=== PATIENT | male | born 1975 | race Caucasian/White ===

== ENCOUNTER → 2024-02-16 | Outpatient (CLI) | payer BC | END | disposition home or self-care (01) | LOC: RAH 10:33 | PROVIDERS: ATTEND Internal Medicine | DX: K44.9 Diaphragmatic hernia without obstruction or gangrene (principal); R10.12 Left upper quadrant pain | CPT/HCPCS: 74240 ==

== ENCOUNTER → 2024-09-01 | Outpatient (CLI) | payer BC | END | disposition home or self-care (01) | LOC: RAH 12:50 | PROVIDERS: ATTEND Family Medicine | DX: S46.312A Strain of muscle, fascia and tendon of triceps, left arm, initial encounter (principal); M79.89 Other specified soft tissue disorders; X58.XXXA Exposure to other specified factors, initial encounter; Y93.89 Activity, other specified; Y92.89 Other specified places as the place of occurrence of the external cause; Y99.8 Other external cause status | CPT/HCPCS: 73218 ==

== ENCOUNTER 2025-11-10 11:01 | Observation (INO) | payer BC ==
[~2025-11-10] VITALS: Ht 185.4 cm; Wt 110.9 kg
[2025-11-10] VITALS (15 sets, daily range): BP systolic 122–150; BP diastolic 71–101; PULSE 50–101; RESP 13–23; TEMP 97.6–98.2; O2SAT 97
--- NOTE | 2025-11-10 11:18 | ERN ---
ED Note History of Present Illness Stated Complaint: FOREIGN OBJECT IN THROAT Chief Complaint: Other Problems Time Seen by MD: 11:04 Time Seen by Midlevel: 11:10 Dictation: 50-YEAR-OLD MALE WITH A HISTORY OF HYPERTENSION COMING IN FROM [facility] FOR COMPLAINTS OF HAVING A PIECE OF CHICKEN STUCK IN HIS ESOPHAGUS. PATIENT STATES YESTERDAY HE WAS EATING CHICKEN AFTER HE ATE HE FELT SOMETHING STUCK IN HIS ESOPHAGUS. TODAY HE WENT TO WENT TO [facility] AND WAS SENT HERE TO EXPEDITE EGD. IN HIS AWAKE ALERT AND ORIENTED, SPEAKING FULL SENTENCES, NO DROOLING, NO SHORTNESS A BREATH, NO TACHYPNEA, SPO2 NORMAL LIMITS. Allergies: Coded Allergies: No Known Drug Allergies (Unverified Allergy, Unknown, 11/10/25) Past Medical History Past Medical History: Asthma, Hypertension Additional Past Medical Hx: GLAUCOMA Surgical History: None Review of System Dictation CONSTITUTIONAL: NEGATIVE FOR FEVER,CHILLS, AND WEIGHT LOSS EYES: NEGATIVE FOR INJURY, PAIN,REDNESS, AND DISCHARGE ENT: PATIENT STATES HE FEELS FOREIGN BODY IN HIS ESOPHAGUS CARDIOVASCULAR: NEGATIVE FOR CHEST PAIN, PALPITATIONS, AND EDEMA RESPIRATORY: NEGATIVE FOR SHORTNESS OF BREATH, COUGH, AND WHEEZING, ABDOMEN/GI: NEGATIVE FOR ABDOMINAL PAIN, NAUSEA, VOMITING, DIARRHEA, AND CONSTIPATION BACK: NEGATIVE FOR INJURY AND PAIN : NEGATIVE FOR INJURY, BLEEDING AND DISCHARGE MS/EXTREMITY: NEGATIVE FOR INJURY AND DEFORMITY SKIN: NEGATIVE FOR RASH, AND DISCOLORATION NEURO: NEGATIVE FOR HEADACHE, WEAKNESS, NUMBNESS, TINGLING, AND SEIZURE PSYCH: NEGATIVE FOR SUICIDE IDEATION, HOMICIDAL IDEATION, AND HALLUCINATIONS Review of Systems: was completed Initial Vital Sign VS Vital Signs Date Time Temp Pulse Resp B/P (MAP) Pulse Ox O2 Delivery O2 Flow Rate FiO2 11/10/25 11:03 97.9 60 16 162/90 99 Room Air 11/10/25 11:16 0 21 Physical Exam Dictation GENERAL: AWAKE, ALERT, NAD HEAD/FACE: NORMOCEPHALIC, ATRAUMATIC EYES: PERRL, EOMI, VISION AT BASELINE ENT: ORAL CAVITY CLEAR, TMS CLEAR, NO SIGNS OF INFECTION NECK: TRACHEA MIDLINE, SUPPLE, NO NUCHAL RIGIDITY CARDIOVASCULAR: RRR, NORMAL S1/S2, NO MRGS, NO JVD RESPIRATORY: CTAB, NO RESPIRATORY DISTRESS, NO RALES OR WHEEZES ABDOMEN: SOFT, NON-TENDER, NON-DISTENDED, NORMAL BOWEL SOUNDS, NO GUARDING OR REBOUND. SKIN: WARM, DRY, NORMAL TURGOR, NO RASH MS/EXTREMITY: PULSES EQUAL, NO CYANOSIS, NEUROVASCULAR INTACT, FROM NEURO: COAX4, GCS 15, STRENGTH 5/5, CN 2-12 INTACT, NORMAL CEREBELLAR EXAM, NORMAL GAIT, PSYCH: NORMAL BEHAVIOR, MOOD, AND AFFECT NORMAL ED Course ED Course Orders Procedure Category Date Status Time Cbc With Differential LAB 11/10/25 Logged 11:18 Basic Metabolic Panel LAB 11/10/25 Logged 11:18 *Nursing CPOE 11/10/25 Transmitted Communication: 11:20 Vital Signs Date Time Temp Pulse Resp B/P (MAP) Pulse Ox O2 Delivery O2 Flow Rate FiO2 11/10/25 11:16 98.4 60 12 157/105 98 Room Air* 0 21 11/10/25 11:03 97.9 60 16 162/90 99 Room Air Medical Decision Making MDM MDM: 50-YEAR-OLD MALE WITH A HISTORY OF HYPERTENSION COMING IN FROM [facility] FOR COMPLAINTS OF HAVING A PIECE OF CHICKEN STUCK IN HIS ESOPHAGUS. PATIENT STATES YESTERDAY HE WAS EATING CHICKEN AFTER HE ATE HE FELT SOMETHING STUCK IN HIS ESOPHAGUS. TODAY HE WENT TO WENT TO [facility] AND WAS SENT HERE TO EXPEDITE EGD. IN HIS AWAKE ALERT AND ORIENTED, SPEAKING FULL SENTENCES, NO DROOLING, NO SHORTNESS A BREATH, NO TACHYPNEA, SPO2 NORMAL LIMITS. SPOKE TO YOGESH FROM [facility], STATED THEY HAVE ALREADY NOTIFIED DR. SIMMONS FOR A EGD TODAY. RECOMMENDED I GET A CONSENT FOR AN EGD AND ADMIT TO HOSPITALIST TEAM. STATED NO NEED FOR FURTHER IMAGING. DIFFERENTIAL DIAGNOSIS: FOREIGN BODY IN THROAT, FOREIGN BODY SENSATION, RATIONALE: TESTS CONSIDERED AND ORDERED SECONDARY TO SHARED DECISION MAKING INCLUDE: LABS, ECG AND RADIOLOGY PREVIOUS OUTSIDE RECORDS REVIEWED: OLD ER VISITS. RISK OF COMPLICATION AND/OR MORBIDITY OR MORTALITY OF PATIENT MANAGEMENT: NONE MEDICATIONS-PER MEDICATION RECONCILIATION NEED FOR HOSPITALIZATION: PATIENT DOES MEET CRITERIA FOR HOSPITALIZATION. NEED FOR EMERGENCY MAJOR/MINOR SURGERY: NO THERE ARE NO SOCIAL CONCERNS WITH THIS PATIENT. PRESCRIPTION DRUG MANAGEMENT PRESCRIPTIONS WILL INCLUDE SYMPTOMATIC CARE PATIENT'S PRIOR EXTERNAL MEDICAL RECORDS FROM OTHER ER VISITS WERE REVIEWED BY ME INDICATED. PRIOR TESTING AND RESULTS FROM PREVIOUS VISITS WERE REVIEWED. PRIOR TESTS WERE TAKEN INTO ACCOUNT WITH MEDICAL DECISION MAKING AND RESOURCE UTILIZATION, INDEPENDENT HISTORIAN/HISTORIANS WERE USED TO OBTAIN COMPLETE MEDICAL HISTORY. I INDEPENDENTLY INTERPRETED THE TEST THAT WERE PERFORMED, RESULTS WERE REVIEWED BY ME AND CONSIDERED FINDINGS ON RADIOLOGY IF ORDERED. MEDICAL MANAGEMENT AND EXAMINATION INTERPRETATION DISCUSSIONS WERE HAD BY ME WITH OTHER QUALIFIED HEALTHCARE PROFESSIONALS INDICATED FOR THE PATIENT'S CARE. DX & DISP Disposition: Inpatient Departure Impression: Primary Impression: Obstruction of esophagus Condition: Stable Referrals: LYNNE HUNG MD (PCP) I have reviewed the case, and I agree with, Diagnosis and Plan SANJIV MARTINEZ [facility] Nov 10, 2025 11:18
[2025-11-10 12:01] LABS: IMMATURE GRANULOCYTE ABSOLUTE 0.05 K/uL (0-1); NUCLEATED RED BLOOD CELLS 0.0 % (0.0-0.19); PLATELET COUNT (AUTO) 241 K/uL (130-400); RED BLOOD CELL COUNT(AUTO) 5.17 MIL/uL (4.50-6.20); RED CELL DISTRIBUTION WIDTH 12.2 % (11.0-15.5); WHITE BLOOD COUNT (AUTO) 7.4 K/uL (4.8-10.8)
--- NOTE | 2025-11-10 12:03 | HMCIMG ---
EXAM: CR Chest, 1 view on 2 radiographs. CLINICAL HISTORY: FB IN ESOPH COMPARISON: None provided. FINDINGS: LUNGS: The lungs show no infiltrate or other acute finding. PLEURAL SPACES: No pleural effusion or pneumothorax. MEDIASTINUM: The cardiomediastinal silhouette is within normal limits. No radiographically detectable foreign body seen within the mediastinal area. BONES: No aggressive appearing osseous lesion seen. IMPRESSION: No acute cardiopulmonary pathology is evident. No obvious radiographically detectable ingested foreign bodies. /[place]
[2025-11-10 12:10] LABS: CREATININE 1.1 mg/dL (0.5-1.3); GLOMERULAR FILTR. RATE CALC 83.0 mL/min (>90); GLUCOSE,RANDOM 98.0 mg/dL (70-105); SODIUM SERUM 141.0 mmol/L (136-145); UREA NITROGEN, BLOOD 16.0 mg/dL (7-18)
--- NOTE | 2025-11-10 12:21 | HP ---
[facility] HISTORY AND PHYSICAL Date of Service: Nov 10, 2025 Time of Service: 12:01 HISTORY OF PRESENT ILLNESS: [50 year old male asthma and hypertension who presented to the emergency department after being sent from [facility] for further evalu ation. Patient was evaluated by mid-level at [facility] and because the fact that patient had in bolus chicken after lunch yesterday and nothing is passing now only water their recommendation is for patient to come to the emergency department for an emergent EGD. ] REVIEW OF SYSTEMS CONSTITUTIONAL: Denies fevers, chills, or night sweats. No unintentional weight loss reported. NEUROLOGICAL: Denies headache, amaurosis fugax, motor weakness, sensory deficit, vertigo/spinning sensation, gait abnormalities, or tremors. ENT: No hearing loss, otalgia, otorrhea, rhinitis, rhinorrhea, hoarseness, or sore throat. CARDIOVASCULAR: Denies any exertional angina, dyspnea on exertion, orthopnea, paroxysmal nocturnal dyspnea, palpitations, life-threatening arrhythmias, claudication. PULMONARY: Denies any shortness of breath, cough, phlegm/sputum, hemoptysis, pleuritic chest pain. SLEEP: Denies morning headaches, daytime somnolence or napping. Denies difficulty falling asleep, staying asleep, waking from sleep. Denies knowledge of snoring. GASTROINTESTINAL: Denies any type of dysphagia to either liquids or solids. Denies nausea, vomiting, pyrosis, early satiety, abdominal pain, diarrhea, constipation, or changes in stool consistency or caliber. Denies coffee-ground emesis, hematemesis, hematochezia, or melanotic stools. GENITOURINARY: Denies frequency, urgency, nocturia, hematuria or incontinence (Storage/Irritative symptoms.) Low urinary stream, straining to void, urinary intermittency or hesitancy, splitting of the voiding stream, terminal dribbling. ENDOCRINOLOGIC: Denies polyuria, polydipsia, polyphagia or heat/cold intoleran fabián. HEMATOLOGIC: Denies thrombophilia/previous clots, or coagulopathy/bleeding disorders. ONCOLOGIC: Denies personal history of malignancy. DERMATOLOGIC: Denies rashes or pruritus. PSYCHIATRIC: Denies any suicidal or homicidal ideation. Denies hallucinations. PAST MEDICAL HISTORY: [ Hypertension, asthma ] PAST SURGICAL HISTORY: [ Glaucoma ] PAST SOCIAL HISTORY: [Denies any surgical history ] FAMILY HISTORY: [Noncontributory ] Coded Allergies: No Known Drug Allergies (Unverified Allergy, Unknown, 11/10/25) PHYSICAL EXAM GENERAL APPEARANCE: The patient is awake, alert, and oriented, in no acute cardiopulmonary distress. NEUROLOGICAL: Cranial nerves II-XII grossly intact. Motor is 5/5 in bilateral upper and lower extremities proximal to distal. No sensory deficits. HEENT: Face is symmetric. Pupils are equal and reactive. Extraocular movements are intact. NECK: Supple. No JVD. No thyromegaly. No submental, submandibular, pre- /postauricular, occipital or supraclavicular lymphadenopathy. CHEST: Normal chest expansion. No Telemetry. LUNGS: Absence of any rales, rhonchi or any wheezing. CARDIOVASCULAR: Regular. S1 and S2 normal. No appreciable rubs, murmurs or gallops. ABDOMEN: Soft, nontender, and nondistended. There is no rebound, voluntary guarding, or rigidity. : Deferred. No Wood. EXTREMITIES: Non-edematous and not cyanotic. No clubbing. Good capillary refill. SKIN: No skin breakdown. Vital Sign (Last 24 Hours) 11/10/25 11:16 Temp 98.4 Pulse 60 Resp 12 B/P (MAP) 157/105 Pulse Ox 98 O2 Delivery Room Air* O2 Flow Rate 0 FiO2 21 LABS: DIAGNOSTICS / RADIOLOGY: [[place] [address] [place] [id number] IMAGING REPORT Signed PATIENT: CANELO NAJERA MR#: [id number] : 1975 SEX: M AGE: 50 LOCATION: [facility] ORDER [id number] STATUS: [facility] REPORT#: [id number] SERVICE [id number] REASON: FB IN ESOPH ORDERING PHYSICIAN: SANJIV MARTINEZ CNP PROCEDURE: CXR1VW - CHEST 1VW EXAM: CR Chest, 1 view on 2 radiographs. CLINICAL HISTORY: FB IN ESOPH COMPARISON: None provided. FINDINGS: LUNGS: The lungs show no infiltrate or other acute finding. PLEURAL SPACES: No pleural effusion or pneumothorax. MEDIASTINUM: The cardiomediastinal silhouette is within normal limits. No radiographically detectable foreign body seen within the mediastinal area. BONES: No aggressive appearing osseous lesion seen. IMPRESSION: No acute cardiopulmonary pathology is evident. No obvious radiographically detectable ingested foreign bodies. /[place] DICTATED BY: CLARK BENTLEY Jr., MD DATE: 11/10/25 130 ELECTRONICALLY SIGNED BY: CLARK BENTLEY Jr., MD DATE: 11/10/25 1301 ] ASSESSMENT: [Foreign To the esophagus, POA Hypertension, POA ] PLAN: [Admit to medical floor Keep patient NPO Patient on IV fluids with NS at 100 mL/hour Patient will be seen by GI for emergent EGD Patient will remain hospitalized until cleared by GI Continue with supportive care Repeat labs tomorrow If patient is cleared for discharge today patient can be discharged home as well. Patient is a full code Case was discussed with Dr. Chaidez, above plan was formulated ADVANCED CARE PLANNING 1. Which of the following were discussed? Hospice Care - Yes / No Therapeutic options - Yes / No Advance Directives - Yes / No Other discussions - 2. Discussed with who? Patient 3. Voluntary nature of this service was explained to the patient? Yes / No 4. Amount of time spent - __20 mins 5. Reviewed by Physician? (if this service was performed by NPP) Yes / No ] ATTESTATION BY PHYSICIAN I have seen and examined the patient. I reviewed the documentation, medical decision making, and treatment plan as noted by the mid-level provider above. I agree with the findings and plan of care. ANA CHAIDEZ MD, [facility]ANICE B [facility] Nov 10, 2025 12:20
[2025-11-10] MEDS: 0.9%NACL 1000ML 1,000 ML IV SCH (12:29)
[2025-11-10 12:37] LABS: ASPARTATE AMINOTRANSFERASE 33.0 U/L (10-37); TOTAL PROTEIN, SERUM 7.7 g/dL (6.0-8.3)
--- NOTE | 2025-11-10 13:56 | NUR ---
DCP: HOME - may need ride at discharge Pt states he drove self to ER. 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 Pt lives alone, is independent of all ADLS and IADLS. pt uses no DME or in home care services. pcp is harish Livingston and uses [facility] for rx needs. Pt may need ride home at [place]. Mother Radha Rothman [phone]
--- NOTE | 2025-11-10 14:00 | NUR ---
PATIENT LEFT FOR EGD BY DR FUENTES
[2025-11-10] MEDS ORDERED: LIDOCAINE PF 100MG/5ML (2%) SYRINGE 5ML ONE (15:27)
[2025-11-10] MEDS ORDERED: PANT20TA18 PO (17:24)
[2025-11-10] MEDS ORDERED: TELM1TAB48 PO (17:24)
[2025-11-10] MEDS ORDERED: CARV3.12 PO (17:24)
[2025-11-10] MEDS: FAMOTIDINE 20MG TAB PO SCH (21:33)
[2025-11-11] VITALS: BP 127/80; PULSE 63; RESP 18; TEMP 97.6
[2025-11-11 04:00] VITALS: BP 128/85; PULSE 61; PULSE 67; RESP 18; TEMP 97.7
[2025-11-11 04:59] LABS: NUCLEATED RED BLOOD CELLS 0.0 % (0.0-0.19); PLATELET COUNT (AUTO) 203.0 K/uL (130-400); RED BLOOD CELL COUNT(AUTO) 4.75 MIL/uL (4.50-6.20); RED CELL DISTRIBUTION WIDTH 12.3 % (11.0-15.5); WHITE BLOOD COUNT (AUTO) 7.5 K/uL (4.8-10.8)
[2025-11-11 05:20] LABS: ASPARTATE AMINOTRANSFERASE 27.0 U/L (10-37); CREATININE 1.1 mg/dL (0.5-1.3); GLOMERULAR FILTR. RATE CALC 83.0 mL/min (>90); GLUCOSE,RANDOM 93.0 mg/dL (70-105); SODIUM SERUM 140.0 mmol/L (136-145); TOTAL PROTEIN, SERUM 6.7 g/dL (6.0-8.3); UREA NITROGEN, BLOOD 13.0 mg/dL (7-18)
[2025-11-11 06:22] VITALS: TEMP 97.7
[2025-11-11 08:00] VITALS: BP 154/95; PULSE 55; RESP 18; TEMP 97.6
[2025-11-11 10:10] VITALS: BP 154/95; O2SAT 97
--- NOTE | 2025-11-11 10:31 | DS ---
Discharge Summary Hospital Course Summary: DISCHARGE SUMMARY Patient Name: Aleks Fox : 1975 Admit Date: 11/10/2025 Discharge Date: 11/11/2025 Attending Provider: Dr. Carlos Chaidez/Veronika Soni [facility] Metal Control Coordinator: Dr. Naveed Lopes Jr., MD (GI) Admitting Diagnosis: Suspected esophageal foreign body, dysphagia Discharge Diagnosis: Dysphagia, rule out eosinophilic esophagitis; gastric polyps; minimal gastritis; hypertension; asthma HOSPITAL COURSE: Mr. Fox is a 50-year-old male with a history of hypertension and asthma who presented with acute onset dysphagia after ingesting a bolus of chicken. He was referred from [facility] for further evaluation and emergent EGD . On admission, he was hemodynamically stable, afebrile, and in no acute distress. Chest X-ray showed no evidence of foreign body or acute cardiopulmonary pathology. He was admitted, kept NPO, and started on IV fluids. Gastroenterology was consulted, and the patient underwent upper GI endoscopy performed by Dr. Naveed Lopes Jr., MD. Endoscopic findings revealed: - Esophagus: No endoscopic abnormality to explain dysphagia. Biopsies obtained from mid and distal esophagus for histology to rule out eosinophilic esophagitis. - Stomach: Minimal inflammation in the gastric body and antrum; biopsies obtained for histology. Five 4-5 mm sessile polyps were identified and completely removed with cold snare; no stigmata of recent bleeding. - Estimated blood loss: Minimal. - Patient identification for all specimens was verified. Post-procedure, the patient remained hemodynamically stable, reported no pain, and tolerated his diet without difficulty. No further episodes of dysphagia or other complaints were noted during observation. DISCHARGE CONDITION: - Hemodynamically stable - Tolerating diet - Ambulatory - No complaints of pain or dysphagia DISCHARGE INSTRUCTIONS: - Diet: Regular as tolerated - Activity: As tolerated - Medications: Resume home medications unless otherwise instructed - Wound care: None required - Follow-up: - With Primary Care Provider (PCP) in 2-3 days - With [facility] in 1 week for review of biopsy results and further management - Return to ED: For chest pain, persistent vomiting, inability to tolerate oral intake, fever, or any new or worsening symptoms Patient verbalized understanding of discharge instructions. Metal Control Coordinator(s): Dr. Naveed Lopes JR- GI from [facility] Procedure(s): 11/10/25- Upper GI Endoscopy Assessment/Plan: ASSESSMENT: [Foreign To the esophagus, POA Hypertension, POA Discharge Diagnoses: Dysphagia, rule out eosinophilic esophagitis; gastric polyps; minimal gastritis; hypertension; asthma ] Home Medications: Reported Medications Pantoprazole Sodium (Pantoprazole Sodium) 20 Mg Tablet.dr, 20 MG PO DAILY, TAB 11/10/25 Telmisartan/Amlodipine (Telmisartan-Amlodipine 80-5 mg) 80 Mg-5 Mg Tablet, 1 TAB PO DAILY for 30 Days, #30 TAB 0 Refills 11/10/25 Carvedilol (Carvedilol) 3.125 Mg Tablet, 3.125 MG PO BID, TAB 11/10/25 Continued Medications: Carvedilol (Carvedilol) 3.125 Mg Tablet 3.125 MG PO BID, TAB Pantoprazole Sodium (Pantoprazole Sodium) 20 Mg Tablet.dr 20 MG PO DAILY, TAB Telmisartan/Amlodipine (Telmisartan-Amlodipine 80-5 mg) 80 Mg-5 Mg Tablet 1 TAB PO DAILY for 30 Days, #30 TAB 0 Refills Time spent arranging discharge: 31-60 minutes ATTESTATION BY PHYSICIAN I have seen and examined the patient. I reviewed the documentation, medical decision making, and treatment plan as noted by the mid-level provider above. I agree with the findings and plan of care. CARLOS CHAIDEZ MD, [facility] Nov 11, 2025 10:31
--- NOTE | 2025-11-11 13:30 | NUR ---
PT DC'D HOME PER MD ORDER. PT TOLERATED CLEAR BREAKFAST AND GI SOFT DIET FOR LUNCH. PT WAS GIVE A F/U APPT TO SEE [facility] ON 2025 AT 2:30 PM. PT STATED UNDERSTANDING. PT DENIES ANY PAIN/DISCOMFORT. IV REMOVED, TIP INTACT.
== END 2025-11-11 13:30 | disposition home or self-care (01) ==
LOC: EDH 11:01 → EDHIP 11:30 → 3CH 16:29
PROVIDERS: ADMIT Internal Medicine; ATTEND Internal Medicine
DX: K22.2 Esophageal obstruction (principal); K44.9 Diaphragmatic hernia without obstruction or gangrene; R12 Heartburn; K59.04 Chronic idiopathic constipation; J45.909 Unspecified asthma, uncomplicated; I10 Essential (primary) hypertension; H40.9 Unspecified glaucoma; K21.9 Gastro-esophageal reflux disease without esophagitis; E66.9 Obesity, unspecified; F41.9 Anxiety disorder, unspecified; G47.30 Sleep apnea, unspecified; Z68.32 Body mass index [BMI] 32.0-32.9, adult; Z79.899 Other long term (current) drug therapy; Z98.890 Other specified postprocedural states
CPT/HCPCS: 99284; 83735 ×2; 80053 ×2; 85025; 36415 ×2; 88305; 88312; 71045; 43239; 43251; 85027; G0378 ×26; J2003; J2704 ×2; A4620; A4215; J3490